=== PATIENT | female | born 1965 | race Caucasian/White ===

== ENCOUNTER → 2016-11-20 | Outpatient (CLI) | payer OTHER ==
[~2016-11-20] MED LIST: ACETAMINOPHEN500 MG PO; HYDROCODONE-AP1 EAC8 PO; LEVOTHROID,SY0.05 MG PO
[2016-11-20 15:37] LABS: APPEARANCE CLEAR/COLORLESS; RED CELL AREA COUNTED 18; RED CELL COUNT 2 /MM^3 (0-1); RED CELL DILUTION 1; WBC AREA COUNTED 18; WBC DILUTION 1; WHITE CELL COUNT 3 /MM^3 (0-5); WHITE CELL RAW COUNT 5
[2016-11-20 16:11] LABS: CSF EOSINOPHILS 0 % (0-25); MONONUCLEAR WBC'S 100 % (50-90); POLYNUCLEAR WBC'S 0 % (0-3)
[2016-11-22 19:17] LABS: Albumin, Serum 4.1 g/dL (3.5-4.9); IgG Index, CSF 0.44 index (<0.66); Synthesis Rate IgG, CSF -8.6 mg/24 h (-9.9-3.3)
== END | disposition home or self-care (01) ==
LOC: RAD 13:36
PROVIDERS: Psychiatry & Neurology Clinical Neurophysiology
PROC: 009U3ZZ Drainage of Spinal Canal, Percutaneous Approach (ICD-10-PCS; principal; 2016-11-20)
DX: G37.9 Demyelinating disease of central nervous system, unspecified (principal); B99.9 Unspecified infectious disease
CPT/HCPCS: 62270; 77003; 82945; 83873 90; 83916 90; 84157; 86617 90; 86618 90; 87070; 87205; 89051